=== PATIENT | female | born 1975 | race Two or more races ===

== ENCOUNTER 2021-12-24 11:52 | Outpatient (CLI) | payer OTHER | END 2021-12-24 12:07 | disposition home or self-care (01) | LOC: MAMO-SONO 11:52 | PROVIDERS: ATTEND Pediatrics | DX: Z12.31 Encounter for screening mammogram for malignant neoplasm of breast (principal); N64.4 Mastodynia; N63.20 Unspecified lump in the left breast, unspecified quadrant; N92.1 Excessive and frequent menstruation with irregular cycle ==